=== PATIENT | female | born 1990 | race Caucasian/White ===

== ENCOUNTER → 2017-10-06 | Outpatient (CLI) | payer MEDICAID | END | disposition home or self-care (01) | LOC: RAD 17:33 | DX: M54.5 Low back pain (principal); R10.9 Unspecified abdominal pain | CPT/HCPCS: 76770 ==

== ENCOUNTER 2019-09-16 12:21 | Outpatient (CLI) | payer BC, MEDICAID ==
[2019-09-16] MEDS ORDERED: NO MEDS PER PT (13:09)
== END 2019-09-16 23:59 | disposition home or self-care (01) ==
LOC: STAR 12:21
PROVIDERS: ATTEND Orthopaedic Surgery
DX: Z02.9 Encounter for administrative examinations, unspecified (principal)

== ENCOUNTER 2019-09-21 08:34 | Day surgery (SDC) | payer BC, MEDICAID ==
[~2019-09-21] VITALS: Ht 157.5 cm; Wt 54.5 kg
[~2019-09-21 08:34] MED LIST: BUPIVACAINE/PF 0.25% ONE; EPINEPHRINE 1 MG/ML, 1ML ONE; NO MEDS PER PT
[2019-09-21] MEDS ORDERED: MIDAZOLAM 1 MG/ML, 2ML ONE (09:05)
[2019-09-21] MEDS ORDERED: FENTANYL PF 100 MCG/2ML ONE (09:05)
[2019-09-21 09:08] VITALS: BP 117/76
[2019-09-21] MEDS ORDERED: LIDOCAINE-MPF 1%, 2ML INFIL ONE (09:30)
[2019-09-21] MEDS ORDERED: SCOPOLAMINE PATCH, 1.5MG PATCH.TD72 TD ONE (09:30)
[2019-09-21] MEDS ORDERED: ACETAMINOPHEN 500 MG TABLET PO ONE (09:30)
[2019-09-21] MEDS ORDERED: GABAPENTIN 300 MG CAPSULE PO ONE (09:30)
[2019-09-21] MEDS ORDERED: LACTATED RINGERS 1,000 ML IV SCH (10:00)
[2019-09-21] MEDS ORDERED: SUCCINYLCHOLINE 20 MG/ML, 10ML ONE (10:24)
[2019-09-21] MEDS ORDERED: DEXAMETHASONE 4 MG/ML, 1ML ONE (10:24)
[2019-09-21] MEDS ORDERED: ONDANSETRON 2MG/ML, 2ML ONE (10:24)
[2019-09-21] MEDS ORDERED: ROCURONIUM 10MG/ML,5ML ONE (10:24)
[2019-09-21] MEDS ORDERED: PROPOFOL 10 MG/ML, 20ML ONE (10:24)
[2019-09-21] MEDS ORDERED: NEOSTIGMINE 1 MG/ML, 10ML ONE (10:24)
[2019-09-21] MEDS ORDERED: CEFAZOLIN 1,000 MG ONE (10:24)
[2019-09-21] MEDS ORDERED: GLYCOPYRROLATE 0.2MG/1ML, 5ML ONE (10:24)
[2019-09-21] MEDS ORDERED: FENTANYL PF 100 MCG/2ML IV PRN (10:30)
[2019-09-21] MEDS ORDERED: PROMETHAZINE 25 MG SUPP PR PRN (10:30)
[2019-09-21] MEDS ORDERED: ONDANSETRON 2MG/ML, 2ML IV PRN (10:30)
[2019-09-21] MEDS ORDERED: PROMETHAZINE 25 MG/ML, 1ML IV PRN (10:30)
[2019-09-21] MEDS ORDERED: LORazepam 2 MG/ML, 1ML IVPush PRN (10:30)
[2019-09-21] MEDS ORDERED: ONDANSETRON ODT 8 MG PO PRN (10:30)
[2019-09-21] MEDS ORDERED: OXYcodone 5 MG/5 ML ORAL.SOL UDC PO PRN (10:30)
[2019-09-21] MEDS ORDERED: HYDROmorphone 1 MG/ML, 1ML INJ IVPush PRN (10:30)
[2019-09-21] MEDS ORDERED: SUGAMMADEX 200 MG/2 ML IVPush ONE (10:47)
[2019-09-21] MEDS ORDERED: MEPERIDINE/PF 25MG/ML,1ML ONE (11:05)
[2019-09-21] MEDS ORDERED: MEPERIDINE/PF 25MG/ML,1ML IVPush PRN (11:30)
[2019-09-21] MEDS ORDERED: LORazepam 2 MG/ML, 1ML ONE (11:33)
== END 2019-09-21 14:40 | disposition home or self-care (01) ==
LOC: OUT 08:34
PROVIDERS: ATTEND Orthopaedic Surgery
DX: S46.012A Strain of muscle(s) and tendon(s) of the rotator cuff of left shoulder, initial encounter (principal); S43.432A Superior glenoid labrum lesion of left shoulder, initial encounter; M75.42 Impingement syndrome of left shoulder; M19.012 Primary osteoarthritis, left shoulder; Z79.1 Long term (current) use of non-steroidal anti-inflammatories (NSAID); Z87.891 Personal history of nicotine dependence; Z88.0 Allergy status to penicillin; Z88.1 Allergy status to other antibiotic agents; X58.XXXA Exposure to other specified factors, initial encounter; Y93.89 Activity, other specified; Y92.89 Other specified places as the place of occurrence of the external cause; Y99.8 Other external cause status
CPT/HCPCS: 29823; 29824; 29826; 64415; J0171; J0690; J1100; J2060; J2175; J2250; J2405; J2704; J3010; J3490; J7120; J2710; J0330